=== PATIENT | female | born 1950 | race Two or more races ===

== ENCOUNTER 2023-11-29 15:25 | Outpatient (CLI) | payer MEDICARE, SELFPAY ==
[2023-11-29 16:22] LABS: Basophils # 0.1 K/mm3 (0-0.2); Basophils % 1.2 % (0.1-2.0); Eosinophils # 0.1 K/mm3 (0.0-0.4); Eosinophils % 1.1 % (0.1-12.0); Lymphocytes # 2.8 K/mm3 (0.7-4.5); Lymphocytes % 26.8 % (10-50); Mean Corpuscular HGB Conc 33.3 g/dL (31.8-35.4); Mean Corpuscular Hemoglobin 28.2 pg (27.0-31.2); Mean Corpuscular Volume 84.6 fl (81-99); Mean Platelet Volume 7.7 fl (7.4-10.4); Monocytes # 0.6 K/mm3 (0.1-1.0); Monocytes % 5.5 % (1.7-9.3); Neutrophils # 6.8 K/mm3 (1.8-7.8); Neutrophils % 65.4 % (37.0-80.0); Platelet Count 377 K/mm3 (142-424); Red Blood Count 4.61 M/mm3 (4.20-5.40); Red Cell Distribution Width 13.7 % (11.5-17.5); White Blood Count 10.4 K/mm3 (4.8-10.8)
[2023-12-05 01:08] LABS: D001-IgE D pteronyssinus <0.10 kU/L (Class 0); D002-IgE D farinae <0.10 kU/L (Class 0); E001-IgE Cat Dander <0.10 kU/L (Class 0); E005-IgE Dog Dander <0.10 kU/L (Class 0); E072-IgE Mouse Urine <0.10 kU/L (Class 0); G002-IgE Bermuda Grass <0.10 kU/L (Class 0); G006-IgE Timothy Grass <0.10 kU/L (Class 0); I006-IgE Cockroach, German <0.10 kU/L (Class 0); Immunoglobulin E, Total 173 IU/mL (6-495); M001-IgE Penicillium chrysogen <0.10 kU/L (Class 0); M002-IgE Cladosporium herbarum <0.10 kU/L (Class 0); M003-IgE Aspergillus fumigatus <0.10 kU/L (Class 0); M006-IgE Alternaria alternata <0.10 kU/L (Class 0); T001-IgE Maple/Box Elder <0.10 kU/L (Class 0); T003-IgE Common Silver Birch <0.10 kU/L (Class 0); T006-IgE Cedar, Mountain <0.10 kU/L (Class 0); T007-IgE Oak, White <0.10 kU/L (Class 0); T008-IgE Elm, American <0.10 kU/L (Class 0); T010-IgE Walnut <0.10 kU/L (Class 0); T011-IgE Maple Leaf Sycamore <0.10 kU/L (Class 0); T014-IgE Cottonwood <0.10 kU/L (Class 0); T015-IgE Ash, White <0.10 kU/L (Class 0); T022-IgE Pecan, Hickory <0.10 kU/L (Class 0); T070-IgE White Mulberry <0.10 kU/L (Class 0); W001-IgE Ragweed, Short <0.10 kU/L (Class 0); W011-IgE Thistle, Russian <0.10 kU/L (Class 0); W014-IgE Pigweed, Common <0.10 kU/L (Class 0); W018-IgE Sheep Sorrel <0.10 kU/L (Class 0)
== END 2023-11-29 23:59 | disposition home or self-care (01) ==
LOC: LAB 15:28
PROVIDERS: PCP Nurse Practitioner Family; Visit Provider Internal Medicine Pulmonary Disease
DX: J30.9 Allergic rhinitis, unspecified (principal); F17.210 Nicotine dependence, cigarettes, uncomplicated; J44.9 Chronic obstructive pulmonary disease, unspecified; J43.9 Emphysema, unspecified; J96.11 Chronic respiratory failure with hypoxia
CPT/HCPCS: 36415; 82785; 85025; 86003

== ENCOUNTER 2024-01-29 14:15 | Outpatient (CLI) | payer MEDICARE, SELFPAY ==
--- NOTE | 2024-01-29 14:16 | CT_ITS ---
FINAL REPORT TECHNIQUE: Thin section axial images were obtained from the lung apices to the upper abdomen by computed tomography. Reformatted images were obtained and reviewed. This study was performed with techniques to keep radiation doses al low as reasonably achievable (ALARA). Individualized dose reduction techniques using automated exposure control or adjustment of mA and/or kV according to the patient's size were employed. CLINICAL HISTORY: lung cancer screening prior smoker x 5 years 1.5 ppd x 10 years COMPARISON: None FINDINGS: CHEST CT LOW DOSE 73-year-old female, prior smoker who quit 5 years ago, 41-copi-cpwv history. CTDI vol (mGy): 2.90 DLP (mGy-cm): 102.64 There is no axillary adenopathy. There is no mediastinal or hilar mass or adenopathy. The heart is normal in size. Severe left coronary artery calcifications are noted. A small pericardial effusion is present. There is mild emphysema and mild pulmonary scarring. Bronchiectasis is present in the medial right lower lobe. A calcified granuloma is present in the right middle lobe. Lung window images demonstrate a 2 mm left upper lobe nodule, best seen on image #34 of series 3. There is a 17 mm nodule in the left lower lobe, seen on multiple images. There is also a 5 mm lateral left lower lobe nodule, best seen on image #53 of series 3. Evidence of an L2 kyphoplasty is noted. Limited images of the upper abdomen are otherwise unremarkable. IMPRESSION: Lung-RADS category 4B S, the S designation for severe left coronary artery calcifications. Recommend PET/CT and possible CT-guided biopsy of the left lower lobe 17 mm nodule. Reviewed, Interpreted and Dictated by Jeovany Beal III, MD Transcribed by Inge Collisn Authenticated and [facility]
[2024-01-29 15:40] VITALS: PULSE 86; PULSE 90
[2024-01-29] MEDS: ALBUTEROL 0.083% 2.5 MG/3 ML NEB IH (15:40)
--- NOTE | 2024-01-29 16:27 | RESP.PFTSS ---
Patient says she can't do the 6 minute walk at this time. She broke two toes a week and a half ago, and it is too painful to walk on them. She says she is willing to try the 6 minute walk once they heal.
== END 2024-01-29 23:59 | disposition home or self-care (01) ==
LOC: RAD 14:16
PROVIDERS: PCP Nurse Practitioner Family; Visit Provider Internal Medicine Pulmonary Disease
DX: F17.210 Nicotine dependence, cigarettes, uncomplicated (principal)
CPT/HCPCS: 71271; 94060; 94640; 94727; 94729; 94762; J7613